=== PATIENT | female | born 1975 | race Caucasian/White ===

== ENCOUNTER 2022-05-18 11:58 | Emergency (ER) | payer OTHER ==
[2022-05-18 12:02] VITALS: RESP 20; BMI 30.1
[2022-05-18] MEDS ORDERED: KETOROLAC TROMETHAMINE 30 MG/1 ML VIAL IM ONE (12:48)
[2022-05-18] MEDS ORDERED: KETOROLAC TROMETHAMINE 30 MG/1 ML VIAL ONE (13:06)
[2022-05-18] MEDS ORDERED: LIDOCAINE 5% TOPICAL PATCH TP ONE (14:13)
[2022-05-18] MEDS ORDERED: LIDOCAINE 5% TOPICAL PATCH ONE (14:22)
[2022-05-18 16:25] VITALS: BP 139/69; PULSE 83
[2022-05-18] MEDS ORDERED: LIDOCAINE PATCH REMOVAL MC ONE (22:00)
== END 2022-05-18 16:25 | disposition home or self-care (01) ==
LOC: JER 11:58
PROC: 3E0233Z Introduction of Anti-inflammatory into Muscle, Percutaneous Approach (ICD-10-PCS; principal; 2022-05-18)
DX: R07.81 Pleurodynia (principal); W11.XXXA Fall on and from ladder, initial encounter; Y93.E9 Activity, other interior property and clothing maintenance; Y92.002 Bathroom of unspecified non-institutional (private) residence as the place of occurrence of the external cause
CPT/HCPCS: 71046-TC-FY; 99284-25